=== PATIENT | male | born 1960 | race Caucasian/White ===

== ENCOUNTER → 2016-12-31 | Outpatient (REF) | payer OTHER | LOC: M LAB REF 13:09 | PROVIDERS: ATTEND Internal Medicine | DX: E78.2 Mixed hyperlipidemia (principal) ==

== ENCOUNTER → 2017-05-18 | Outpatient (REF) | payer OTHER | LOC: M LAB REF 18:28 | PROVIDERS: ATTEND Internal Medicine | DX: E78.2 Mixed hyperlipidemia (principal) ==

== ENCOUNTER → 2017-07-29 | Outpatient (CLI) | payer OTHER ==
[2017-07-29 18:10] LABS: BASO # 0.1 10^3/uL (0.0-0.2); BASO % 0.9 % (0.0-1.0); EOS # 0.2 10^3/uL (0.0-0.50); EOS % 2.3 % (0.0-3.0); IMMATURE GRANULOCYTE % 1.2 % (0-0); LYMPH # 2.2 10^3/uL (1.5-4.5); LYMPH % 23.8 % (24.0-44.0); MEAN CORPUSCULAR HEMOGLOBIN 27.7 pg (27.0-33.0); MEAN CORPUSCULAR HGB CONC 32.1 g/dl (32.0-36.5); MEAN CORPUSCULAR VOLUME 86.3 fl (80.0-96.0); MONO # 0.6 10^3/uL (0.0-0.8); MONO % 6.7 % (0.0-5.0); NEUTROPHILS # 5.9 10^3/uL (1.8-7.7); NEUTROPHILS % 65.1 % (36.0-66.0); PLATELET COUNT, AUTOMATED 238 10^3/uL (150-450); RED CELL DISTRIBUTION WIDTH 14.5 % (11.5-14.5); WHITE BLOOD COUNT 9.1 10^3/uL (4.0-10.0)
[2017-07-29 18:21] LABS: ADD MORPHOLOGY? NO
--- NOTE | 2017-07-30 00:30 | REP ---
Clinical: Renal cancer . Comparison: 07/02/2016 . Technique: PA and lateral. Findings: The mediastinum and cardiac silhouette are normal. The lung zapien demonstrate chronic stable changes without acute consolidation, effusion, or pneumothorax. The skeletal structures are intact and normal. Impression: 1. No acute cardiopulmonary process. Signed by Gonzalo Mason MD 07/30/2017 12:21 A
== END ==
LOC: M LAB 15:54
PROVIDERS: ATTEND Urology
DX: C64.2 Malignant neoplasm of left kidney, except renal pelvis (principal)

== ENCOUNTER → 2017-10-02 | Outpatient (REF) | payer OTHER | LOC: M LAB REF 12:36 | PROVIDERS: ATTEND Internal Medicine | DX: E78.2 Mixed hyperlipidemia (principal) ==

== ENCOUNTER → 2018-03-12 | Outpatient (REF) | payer OTHER ==
[2018-03-13 08:06] LABS: LDL DIRECT 75 mg/dL (0-99)
== END ==
LOC: M LAB REF 12:14
DX: E78.2 Mixed hyperlipidemia (principal)
CPT/HCPCS: 83721

== ENCOUNTER 2018-12-17 19:15 | Inpatient (IN) | payer OTHER ==
[~2018-12-17] VITALS: Ht 175.3 cm; Wt 118.5 kg
[2018-12-17] MEDS ORDERED: ASPI1TAB PO (19:53)
[2018-12-17] MEDS ORDERED: BISO10TA6 PO (19:53)
[2018-12-17] MEDS ORDERED: AMLO5TAB6 PO (19:53)
[2018-12-17] MEDS ORDERED: LOVA1CAP17 PO (19:58)
[2018-12-17] MEDS ORDERED: INDA25TAB PO (19:58)
[2018-12-17] MEDS ORDERED: IRBE150T12 PO (19:58)
[2018-12-17] MEDS ORDERED: SITA50TAB PO (19:58)
[2018-12-17] MEDS ORDERED: GLIM2TAB PO (19:58)
[2018-12-17] MEDS ORDERED: SING10TA32 PO (19:58)
[2018-12-17] MEDS ORDERED: ZETI10TA30 PO (19:58)
[2018-12-17] MEDS ORDERED: NS 500 ML IV ONE ×2 (20:00→21:15)
[2018-12-17] MEDS ORDERED: DICYCLOMINE 10 MG CAP PO ONE (20:00)
[2018-12-17] MEDS ORDERED: ONDANSETRON 4MG/2ML VIAL (J2405) IV ONE (20:00)
[2018-12-17 20:10] LABS: BASO # 0.1 10^3/uL (0.0-0.2); BASO % 0.4 % (0.0-1.0); EOS % 0.1 % (0.0-3.0); HEMATOCRIT 52.7 % (42.0-52.0); LYMPH # 1.7 10^3/uL (1.5-4.5); LYMPH % 10.3 % (24.0-44.0); MEAN CORPUSCULAR HEMOGLOBIN 28.5 pg (27.0-33.0); MEAN CORPUSCULAR HGB CONC 34.2 g/dl (32.0-36.5); MEAN CORPUSCULAR VOLUME 83.5 fl (80.0-96.0); MONO # 0.9 10^3/uL (0.0-0.8); MONO % 5.3 % (0.0-5.0); NEUTROPHILS # 13.8 10^3/uL (1.8-7.7); NEUTROPHILS % 83.1 % (36.0-66.0); PLATELET COUNT, AUTOMATED 270 10^3/uL (150-450); WHITE BLOOD COUNT 16.6 10^3/uL (4.0-10.0)
[2018-12-17 20:13] LABS: RED BLOOD COUNT 6.31 10^6/uL (4.30-6.10)
[2018-12-17 20:43] LABS: ALBUMIN 3.8 GM/DL (3.2-5.2); ALT/SGPT 35 U/L (12-78); BILIRUBIN,DIRECT 0.2 MG/DL (0.0-0.2); BLOOD UREA NITROGEN 24 MG/DL (7-18); CALCIUM LEVEL 9.4 MG/DL (8.5-10.1); CARBON DIOXIDE LEVEL 25 MEQ/L (21-32); CHLORIDE LEVEL 99 MEQ/L (98-107); CREATININE FOR GFR 1.28 MG/DL (0.70-1.30); GLOMERULAR FILTRATION RATE > 60.0 (>56); GLUCOSE, FASTING 245 MG/DL (70-100); LIPASE 222 U/L (73-393); SODIUM LEVEL 135 MEQ/L (136-145); TOTAL PROTEIN 7.3 GM/DL (6.4-8.2)
--- NOTE | 2018-12-17 22:10 | REPVR ---
EXAM: CT Abdomen and Pelvis Without Contrast EXAM DATE/TIME: 12/17/18 (9:18pm) CLINICAL HISTORY: 58 year old male with lower abdominal pain and vomiting. History of bladder cancer. TECHNIQUE: Axial computed tomography images of the abdomen and pelvis without contrast. All CT scans at this facility use at least one of these dose optimization techniques: automated exposure control; mA and/or kV adjustment per patient size (includes targeted exams where dose is matched to clinical indication); or iterative reconstruction. Coronal and sagittal reformatted images were created and reviewed. COMPARISON: No relevant prior studies available FINDINGS: Lower thorax: No acute findings. No pleural effusions. ABDOMEN: Liver: No solid mass. Diffuse fatty infiltration. Gallbladder and bile ducts: Normal. No calcified stones. No ductal dilatation. Pancreas: Normal. No ductal dilatation. Spleen: Unremarkable texture. No splenomegaly. Small amount of nonspecific perisplenic fluid Adrenals: Normal. No mass. Kidneys and ureters: Left kidney is not visualized. Solitary right kidney, without hydronephrosis. Mild nonspecific right perinephric stranding. Stomach and bowel: Many small bowel loops are fluid-filled and moderately distended. Distal ileal loops and the colon are nondistended. Sigmoid diverticulosis changes. Appendix: No evidence of appendicitis. PELVIS: Bladder: Unremarkable as visualized. Reproductive: Unremarkable as visualized. ABDOMEN and PELVIS: Intraperitoneal space: Small amount of nonspecific perisplenic fluid. No free air. Bones/joints: No acute fracture nor dislocation. Soft tissues: Unremarkable. Vasculature: Normal. No abdominal aortic aneurysm. Lymph nodes: Normal. No enlarged lymph nodes. Other findings: Small uncomplicated ventral hernia (3 cm size). IMPRESSION: Multiple fluid-filled and moderately distended small bowel loops. Distal ileal loops and the colon are not distended. The findings may represent a mechanical small bowel obstruction (perhaps a mid SBO, eg). Surgical consultation and close follow-up are suggested. Small amount of nonspecific perisplenic fluid. Solitary right kidney, with perinephric stranding --- perhaps a chronic change, eg. A right-sided pyelonephritis cannot be excluded. Urinalysis correlation is suggested. The left kidney is absent. Electronically signed by: Neeru Marsh On 12/17/2018 22:10:15 PM
[2018-12-17] MEDS ORDERED: NS 1,000 ML IV SCH (22:30)
[2018-12-18] MEDS ORDERED: MORPHINE 4 MG/ML 1ML VIAL/SYRINGE (J2270) IV PRN (02:15)
[2018-12-18] MEDS ORDERED: ONDANSETRON 4MG/2ML VIAL (J2405) IV PRN (02:15)
[2018-12-18] MEDS ORDERED: KETOROLAC 30 MG/ML VIAL (J1885) IV PRN (02:15)
[2018-12-18] MEDS ORDERED: METOCLOPRAMIDE INJ 10MG/2ML VIAL (J2765) IV PRN (02:15)
[2018-12-18] MEDS: LR 1,000 ML IV SCH ×3 (04:04→18:09)
[2018-12-18] MEDS: HEPARIN SOD (PORCINE) 5000 UNITS/ML VIAL SC SCH ×3 (06:16→21:40)
[2018-12-18] MEDS: HumaLOG INSULIN (NovoLOG) PER UNIT SC SCH ×3 (06:17→18:09)
[2018-12-18 08:31] LABS: BASO # 0.1 10^3/uL (0.0-0.2); BASO % 0.7 % (0.0-1.0); EOS # 0.2 10^3/uL (0.0-0.50); EOS % 1.4 % (0.0-3.0); HEMATOCRIT 48.6 % (42.0-52.0); LYMPH # 2.2 10^3/uL (1.5-4.5); LYMPH % 21.1 % (24.0-44.0); MEAN CORPUSCULAR HEMOGLOBIN 28.4 pg (27.0-33.0); MEAN CORPUSCULAR HGB CONC 32.9 g/dl (32.0-36.5); MEAN CORPUSCULAR VOLUME 86.2 fl (80.0-96.0); MONO # 0.6 10^3/uL (0.0-0.8); NEUTROPHILS # 7.3 10^3/uL (1.8-7.7); NEUTROPHILS % 69.7 % (36.0-66.0); PLATELET COUNT, AUTOMATED 212 10^3/uL (150-450); RED BLOOD COUNT 5.64 10^6/uL (4.30-6.10); WHITE BLOOD COUNT 10.5 10^3/uL (4.0-10.0)
[2018-12-18 09:03] LABS: BLOOD UREA NITROGEN 23 MG/DL (7-18); CALCIUM LEVEL 8.1 MG/DL (8.5-10.1); CARBON DIOXIDE LEVEL 30 MEQ/L (21-32); CHLORIDE LEVEL 101 MEQ/L (98-107); GLOMERULAR FILTRATION RATE > 60.0 (>56); GLUCOSE, FASTING 243 MG/DL (70-100); POTASSIUM SERUM 3.7 MEQ/L (3.5-5.1); SODIUM LEVEL 139 MEQ/L (136-145)
--- NOTE | 2018-12-18 09:38 | REP ---
SUPINE ABDOMEN: 12/18/2018. CLINICAL HISTORY: Small bowel obstruction. Prior history left nephrectomy. COMPARISON: CT abdomen/pelvis 12/17/2018. FINDINGS: Two views of the supine abdomen to encompass the entirety of the abdomen and pelvis were provided. There is now a nasogastric tube curving into the gastric fundus, its proximal port few centimeters beyond the GE junction. There are some dilated small bowel loops in the left upper quadrant into the mid abdomen and towards the right of midline. The degree of distension is similar to last night's CT. This reflects at least partial small-bowel obstruction. Paucity of gas elsewhere in the abdomen/pelvis. No calcifications of the right renal shadow or expected course of the ureter. Degenerative disc changes and facet arthritic changes in the lumbar spine and hip arthritis as well. IMPRESSION: 1. Nasogastric tube now in place with its tip in the gastric fundus and with the gas pattern showing some mildly distended gas-filled small bowel loops left upper quadrant into the mid abdomen extending towards the right of midline, not much interval change. Findings suggesting a partial small-bowel obstruction. Paucity of gas distal to these loops. However, there is a small volume of gas in the rectal vault. Electronically Signed by Prem Hargrove MD 12/18/2018 07:35 P
[2018-12-18] MEDS: PANTOPRAZOLE 40MG INJ (PROTONIX) (C9113) IV SCH (09:43)
[2018-12-18] MEDS: BISOPROLOL FUMARATE 10 MG TAB PO SCH (09:43)
--- NOTE | 2018-12-18 09:47 | HPE ---
DATE OF ADMISSION: 12/18/2018 ADMISSION DIAGNOSIS: Small bowel obstruction. HISTORY OF PRESENT ILLNESS The patient is a pleasant 58-year-old man who noted on night around supper time a little mild discomfort in his lower abdomen. He had his supper as usual, but afterwards noted the onset of some nausea and persistence of the pain, but with some worsening. He developed emesis and had at least three episodes of emesis. He then had dry heaves that lasted much of the night. He presented to the emergency department just after 7:00 p.m. on December 17 for evaluation. He had had less vomiting during the day but was not trying to take anything orally. He had laboratory studies that suggested some hemoconcentration with an elevated white blood cell count. A CT scan showed some mildly dilated loops of small bowel suggestive of a bowel obstruction. A nasogastric tube was placed and I am now consulted to evaluate the patient. ALLERGIES: The patient reports that STATINS cause body aches. MEDICATIONS: Include: - amlodipine 5 mg p.o. twice daily - aspirin 81 mg p.o. daily - bisoprolol fumarate 10 mg p.o. daily - glimepiride 2 mg p.o. twice a day - indapamide 2.5 mg p.o. daily - omega 3 fatty acids 1 gram orally twice a day - montelukast 10 mg p.o. daily at bedtime - irbesartan 150 mg p.o. daily - ezetimibe 10 mg p.o. daily at bedtime - sitagliptin/Januvia 50 mg p.o. daily PAST SURGICAL HISTORY: The patient has undergone a left nephrectomy in 2006 for cancer. This was done in [place]. He had three surgical procedures for bladder cancer in approximately 2007, 2008 and 2009. PAST MEDICAL HISTORY: His medical history is significant for type 2 diabetes. He has hypertension. He has a history of obstructive sleep apnea. He is status post nephrectomy 12 years ago. FAMILY HISTORY: Noncontributory. SOCIAL HISTORY: The patient is a nonsmoker. REVIEW OF SYSTEMS: The patient denies any chest pain or palpitations. He has not had a stroke or mini stroke. He denies any dysuria or hematuria. He has not had any history of deep vein thrombosis (DVT) or pulmonary embolus. He is not having any particular bone or joint issues. 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 He denies any tobacco use and alcohol use is low. PHYSICAL EXAMINATION: The patient is lying quietly on the hospital stretcher. He is alert and oriented. Sclerae are anicteric. Mucous membranes are tacky to moist. The neck is supple without mass or bruit. Heart exam shows a regular rate and rhythm. The lungs are clear to auscultation bilaterally. Abdomen is somewhat protuberant. He has a fairly quiet abdomen on auscultation. He has a small hernia centrally in the umbilicus and a roughly 7-8 cm scar just above the umbilicus. The abdomen is soft throughout without appreciable mass or guarding. He has some mild direct tenderness below in the midline. The patient has palpable radial pulses and palpable dorsalis pedis pulses as well. LABORATORY STUDIES: On presentation, showed a white count of 17,000, hemoglobin 18, hematocrit 53 and a platelet count of 270,000. Differential count showed a neutrophil count of 83%, lymphs were 10, and monocytes were 5. Chemistry profile showed a sodium of 135, potassium 4.0, chloride 99, CO2 of 25, BUN of 24, creatinine 1.28 and a glucose of 245. Liver function tests were normal. The CT scan was reviewed and this showed absence of the left kidney. His hernia was noted, but did not appear to contain any bowel. There were some mildly to moderately dilated loops of small bowel chiefly in the left midabdomen. IMPRESSION: 1. Small intestinal obstruction secondary to adhesions. 2. Diabetes mellitus type 2. 3. Obstructive sleep apnea. 4. Hypertension. PLAN: The patient will be managed as a small-bowel obstruction. He has an NG tube that was placed in the emergency department and this will be continued to low intermittent suction. He will receive maintenance fluid. He will be placed on Protonix to decrease his gastric secretions. His bisoprolol will be continued and his other medications held for now. Fingerstick blood sugars will be checked and covered as necessary with insulin. The patient will be reexamined in the morning to see how his symptoms are progressing. Hopefully he will resolve this issue spontaneously and not require any surgical intervention.
[2018-12-18 13:20] VITALS: BP 150/88
[2018-12-18 18:00] VITALS: BP 140/82
[2018-12-18] MEDS: MORPHINE 4 MG/ML 1ML VIAL/SYRINGE (J2270) IV PRN (19:58)
[2018-12-18 22:00] VITALS: BP 162/72
[2018-12-19] MEDS: HumaLOG INSULIN (NovoLOG) PER UNIT SC SCH ×5 (00:43→23:44)
[2018-12-19] MEDS: MORPHINE 4 MG/ML 1ML VIAL/SYRINGE (J2270) IV PRN ×2 (00:44→11:02)
[2018-12-19 02:00] VITALS: BP 124/78
[2018-12-19] MEDS: LR 1,000 ML IV SCH ×2 (04:36→17:42)
[2018-12-19] MEDS: HEPARIN SOD (PORCINE) 5000 UNITS/ML VIAL SC SCH ×3 (05:20→22:23)
[2018-12-19 06:00] VITALS: BP 140/81
--- NOTE | 2018-12-19 08:19 | IPN ---
DATE OF SERVICE: 12/18/2018 HISTORY: The patient was admitted early this morning with a history of abdominal pain with some nausea and vomiting and x-ray findings consistent with an intestinal obstruction. He spent the night in a holding bed in the emergency department and was moved up to 4 pavilion today. He apparently had a significant volume out from his nasogastric (NG) tube over the course of the night, approximately 6640-3510 mL. He does report having had a small amount of flatus. He reports that his abdominal pain has diminished. VITAL SIGNS: Show that the patient has been afebrile. His pulse is in the 60s-70s, and his blood pressure is good. Room air oxygen saturations are normal. INTAKE AND OUTPUT: He had a liter of fluid, though this clearly does not include the fluid he received in the emergency department. He has had 500 mL of urine output and 1400 mL from his NG tube today. PHYSICAL EXAMINATION: The patient is sitting up in his bed with his NG tube in place. He appears alert and fairly comfortable. The NG tube has a minimal amount of brownish-green fluid in the canister. Heart examination shows a regular rate and rhythm. Abdomen is somewhat obese. He does have bowel sounds present, though these are not active. Palpation reveals some mild tenderness on palpation in the right upper quadrant and in the epigastrium. LABORATORY STUDIES: This morning show that his white count had come down from 17 to 10. His hemoglobin was 16 with a hematocrit of 49 and a platelet count of 212,000. Differential count was 70% neutrophils, 21% lymphocytes, and 6% monocytes. Chemistry profile showed normal electrolytes with BUN of 23, creatinine 1.1, and a glucose of 243. IMAGING: The patient had a kidneys, ureters, bladder (KUB) this morning. This showed a couple of fairly faintly outlined areas of what looked like small bowel distention in the left upper quadrant. There was a general paucity of air in the abdomen with a small amount of air noted in the rectum. IMPRESSION: The patient had a good return from his NG tube last night, and his pain is diminished. X-ray is still suggestive of a bowel obstruction. PLAN: The patient's NG tube will be continued, and he will remain on intravenous (IV) maintenance fluid. We will continue a nonoperative approach for at least the next 24 hours. I will recheck a KUB in the morning and reassess him at that time. Hopefully, this will resolve without the need for surgical intervention.
[2018-12-19] MEDS: BISOPROLOL FUMARATE 10 MG TAB PO SCH (09:37)
[2018-12-19] MEDS: PANTOPRAZOLE 40MG INJ (PROTONIX) (C9113) IV SCH (09:37)
[2018-12-19 10:00] VITALS: BP 132/78
--- NOTE | 2018-12-19 11:16 | REP ---
SUPINE ABDOMEN: 12/19/2018. COMPARISON: 12/18/2018, CT 12/17/2018. CLINICAL HISTORY: Followup ileus versus partial small-bowel obstruction. FINDINGS: Nasogastric tube again seen with its tip in the fundus. There are still some mildly prominent small bowel loops in the left upper quadrant but their caliber is somewhat decreased. There is now gas scattered throughout small bowel loops distal to these and into the right lower quadrant. Gas is also seen scattered throughout the right transverse colon to the splenic flexure. Small amounts of gas in the distal left colon. No abnormal calcifications. Pelvic phlebolith seen on the left. Some degenerative changes in the spine. No definite abnormal calcifications. IMPRESSION: 1. Improving ileus or partial small-bowel obstruction with gas now extending to distal small bowel loops and into the colon as far as the level of the splenic flexure. Electronically Signed by Prem Hargrove MD 12/19/2018 11:27 A
[2018-12-19 14:00] VITALS: BP 145/85
[2018-12-19 18:00] VITALS: BP 140/70
[2018-12-19 22:00] VITALS: BP 146/80
[2018-12-20 02:00] VITALS: BP 138/76
[2018-12-20 06:00] VITALS: BP 130/80
[2018-12-20 06:29] LABS: BASO # 0.1 10^3/uL (0.0-0.2); BASO % 0.5 % (0.0-1.0); EOS # 0.1 10^3/uL (0.0-0.50); EOS % 0.7 % (0.0-3.0); HEMOGLOBIN 14.4 g/dl (13.5-17.5); LYMPH # 1.1 10^3/uL (1.5-4.5); LYMPH % 9.8 % (24.0-44.0); MEAN CORPUSCULAR HEMOGLOBIN 28.1 pg (27.0-33.0); MEAN CORPUSCULAR VOLUME 87.9 fl (80.0-96.0); MONO # 0.7 10^3/uL (0.0-0.8); MONO % 6.4 % (0.0-5.0); NEUTROPHILS % 81.8 % (36.0-66.0); PLATELET COUNT, AUTOMATED 168 10^3/uL (150-450); RED BLOOD COUNT 5.12 10^6/uL (4.30-6.10)
[2018-12-20] MEDS: HEPARIN SOD (PORCINE) 5000 UNITS/ML VIAL SC SCH ×3 (06:40→21:13)
[2018-12-20] MEDS: HumaLOG INSULIN (NovoLOG) PER UNIT SC SCH ×4 (06:40→23:39)
[2018-12-20] MEDS: LR 1,000 ML IV SCH ×2 (06:41→21:14)
[2018-12-20 06:59] LABS: BLOOD UREA NITROGEN 15 MG/DL (7-18); CALCIUM LEVEL 8.4 MG/DL (8.5-10.1); CARBON DIOXIDE LEVEL 31 MEQ/L (21-32); CHLORIDE LEVEL 103 MEQ/L (98-107); CREATININE FOR GFR 1.12 MG/DL (0.70-1.30); GLOMERULAR FILTRATION RATE > 60.0 (>56); GLUCOSE, FASTING 217 MG/DL (70-100); POTASSIUM SERUM 3.6 MEQ/L (3.5-5.1); SODIUM LEVEL 139 MEQ/L (136-145)
[2018-12-20 07:00] LABS: ALT/SGPT 30 U/L (12-78); BILIRUBIN,TOTAL 1.3 MG/DL (0.2-1.0); TOTAL PROTEIN 6.7 GM/DL (6.4-8.2)
[2018-12-20] MEDS: PANTOPRAZOLE 40MG INJ (PROTONIX) (C9113) IV SCH (08:41)
[2018-12-20] MEDS: BISOPROLOL FUMARATE 10 MG TAB PO SCH (08:41)
[2018-12-20 10:00] VITALS: BP 122/79
[2018-12-20 14:00] VITALS: BP 122/70
[2018-12-20 18:00] VITALS: BP 124/72
--- NOTE | 2018-12-20 18:23 | REP ---
SUPINE ABDOMEN: 12/20/2018. Comparison: 12/19/2018, 12/18/2018, CT 12/17/2018. Clinical history: Follow-up small bowel obstruction. Two views encompass the entirety the abdomen pelvis were again given. There is a nasogastric tube in the fundus of the stomach as before. There is further gas in the colon and scattered throughout small bowel loops. There remains some mildly prominent proximal small bowel loops in the left upper quadrant and tapering to a smaller diameters in the mid abdomen and normal overall. No other significant finding. Impression: 1. Still some mild distension of proximal small bowel loops left upper quadrant and mid upper abdomen that, however, there is more gas into the colon and scattered gas throughout small bowel loops. Findings suggest slowly resolving small bowel obstruction or ileus. Electronically Signed by Prem Hargrove MD 12/21/2018 07:59 A
[2018-12-20 22:00] VITALS: BP 152/76
--- NOTE | 2018-12-21 03:51 | IPN ---
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 He was treated with a nasogastric (NG) tube and intravenous (IV) fluid. He reports this morning that he has passed some flatus today. He has had some discomfort twice that required medication but overall the pain has been much less than it had been. He was up ambulating in the [place] when I came to see him. VITAL SIGNS: Show that he has been afebrile over the last 24 hours. His pulse is in the 60s and 70s and his blood pressure is good. Room air oxygen saturations are in the low to mid 90s. Intake and output show that yesterday recorded in the record he had 1000 in with 2300 out. Today so far he has had 720 of NG output and 400 of urine output recorded. His intravenous (IV) is going at 75 mL/hour. PHYSICAL EXAMINATION: GENERAL: Physical exam shows a pleasant man in no obvious acute distress. The nasogastric tube is in place with a small amount of brownish fluid in the tubing. HEART: Heart exam shows a regular rate and rhythm. ABDOMEN: The abdomen is mildly protuberant. He has active bowel sounds. There is no tympany to percussion. The abdomen is soft throughout with some very mild direct tenderness in the left lower midabdomen. LABORATORIES: The patient has no new laboratory studies today. A kidney, ureter, and bladder (KUB) today showed increased air in the small and large bowel with decreased distension of the small bowel noted in the left upper quadrant. IMPRESSION: The patient appears to be having some improvement in his bowel obstruction. He has had some flatus. Has had generally pretty mild pain and his x-ray looks better. PLAN: We will try clamping his nasogastric (NG) tube. There will be orders to reconnect this to low intermittent suction if he develops nausea, vomiting or increasing pain. We will were obtain another KUB in the morning. If he is doing well with the tube clamped we can remove this and begin some clear liquids. If he has a recurrence of his symptoms with the tube clamped then we should probably proceed to surgery. This was discussed with the patient and his spouse.
[2018-12-21 06:00] VITALS: BP 130/75
[2018-12-21] MEDS: HumaLOG INSULIN (NovoLOG) PER UNIT SC SCH ×3 (06:02→18:18)
[2018-12-21] MEDS: HEPARIN SOD (PORCINE) 5000 UNITS/ML VIAL SC SCH ×3 (06:02→21:03)
[2018-12-21] MEDS: PANTOPRAZOLE 40MG INJ (PROTONIX) (C9113) IV SCH (09:54)
[2018-12-21] MEDS: BISOPROLOL FUMARATE 10 MG TAB PO SCH (09:57)
[2018-12-21 10:00] VITALS: BP 148/82
--- NOTE | 2018-12-21 15:54 | IPN ---
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 He had abdominal pain with some distension and nausea and vomiting and a CT scan that suggested an intestinal obstruction. A nasogastric tube was placed, and he has been decompressed.. He had one brief episode of nausea, for which the tube was unclamped, but it has otherwise remained clamped since then. He reports no pain. He indicates he has been having some flatus. He has not yet had a bowel movement. VITAL SIGNS: He has been afebrile over the past 24 hours with a pulse in the 60s and 70s and a normal blood pressure. Room air oxygen saturations are normal. Intake and output show that yesterday they have recorded 1200 in with 1120 out, though his intravenous (IV) intake should be higher given his current IV rate. His urine output today has been good as well. PHYSICAL EXAMINATION: The patient is lying quietly on the hospital bed. His nasogastric (NG) tube is clamped with a small amount of old dark material in the tubing. Heart exam shows a regular rhythm. The abdomen is mildly obese. He has bowel sounds present. Palpation reveals no significant tenderness. There is no tympany to percussion and no tenderness to percussion. Laboratory studies include a CBC showing a white count of 11 with a differential showing 82% neutrophils, 10% lymphocytes, and 6% monocytes. Chemistry profile shows normal electrolytes with BUN 12, creatinine 1.1, and a glucose of 217. KUB done this morning shows air scattered through the small and large bowel. He does have a few faint loops of small bowel seen in the left mid upper abdomen as outlined by some intraluminal air. There is one of these that it is mildly dilated and the others not so much. Overall, I do not think that this is significantly changed from yesterday. IMPRESSION: Resolved obstructive symptoms with NG clamped for the past day. PLAN: The patient's NG tube will be removed, and he will be started on clear liquids. We will monitor for any recurrence of symptoms.
[2018-12-21] MEDS ORDERED: HumaLOG INSULIN (NovoLOG) PER UNIT SC SCH (21:00)
[2018-12-21 22:00] VITALS: BP 132/70
[2018-12-22] MEDS: HEPARIN SOD (PORCINE) 5000 UNITS/ML VIAL SC SCH (05:24)
[2018-12-22 06:00] VITALS: BP 132/78
[2018-12-22] MEDS: BISOPROLOL FUMARATE 10 MG TAB PO SCH (08:48)
[2018-12-22] MEDS: HumaLOG INSULIN (NovoLOG) PER UNIT SC SCH (08:49)
[2018-12-22] MEDS ORDERED: IRBESARTAN 150 MG TAB PO SCH (09:00)
[2018-12-22] MEDS ORDERED: ASPIRIN 81 MG ENTERIC TAB PO SCH (09:00)
[2018-12-22] MEDS ORDERED: SITagliptin 50 MG TAB (JANUVIA) PO SCH (09:00)
[2018-12-22] MEDS ORDERED: amLODIPine 5 MG TAB PO SCH (09:00)
[2018-12-22 10:00] VITALS: BP 129/67
[2018-12-22 10:21] VITALS: BP 158/87
--- NOTE | 2018-12-22 16:55 | IPN ---
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 A nasogastric tube was placed, which was removed on December 20. He was started on some clear liquids. He reports that he (cut off) and has had some flatus and some loose stool. He denies any significant abdominal pain currently. He has no nausea or vomiting. Vital signs show that he has been afebrile over the past 24 hours. His pulse is generally in the upper 50s to mid 70s. Blood pressure is good, and his room air saturation (cut off). Intake and output show that yesterday he had 2350 in with 1325 recorded out. He has had several voids and several bowel movements recorded today. PHYSICAL EXAMINATION: The patient is sitting up in a chair looking comfortable. He is alert and oriented. Abdomen is obese and protuberant, but he has active bowel sounds, and the abdomen is soft and without significant tenderness. IMPRESSION: The patient has been doing well with clear liquids with return of bowel function and no significant abdominal pain. He does seem to have some mild abdominal distension, though he reports that his abdomen appears normal in contour to him. PLAN: The patient will be advanced to a regular diet. If he tolerates this well, I would anticipate discharge in the morning.
--- NOTE | 2018-12-22 16:57 | IPN ---
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 His nasogastric (NG) tube was removed on December 20, and he has tolerated clear liquids well. He started regular diet on the evening of December 21. This morning he reports that he has been eating well. He is passing flatus and voiding without difficulty. He denies any pain. Vital signs show that he has been afebrile with a pulse in the 50s and a normal blood pressure. Intake and output show an excellent oral intake yesterday. PHYSICAL EXAMINATION: The patient is sitting in a chair looking comfortable. He is alert and oriented. Heart exam shows a regular rhythm. The lungs are clear. The abdomen is obese but soft and nontender with positive bowel sounds. LABORATORY STUDIES: His fingerstick blood sugars have been running in the low to mid 200s since yesterday. IMPRESSION: The patient is doing very well with resolution of his bowel obstruction. He has tolerated a regular diet. PLAN: The patient will be started back on his usual diabetes and blood pressure medications, which have been held. I will discharge him home today. He was counseled to return on an as-needed basis. He can return to work on December 27.
[2018-12-22] MEDS ORDERED: GLIMEPIRIDE 2 MG TAB PO SCH (17:30)
== END 2018-12-22 10:25 | disposition home or self-care (01) | DRG 247 ==
LOC: M ED 19:15 → M ED INP 12-18 02:03 → M MSPAV 12-18 13:18
PROVIDERS: ADMIT Surgery; ATTEND Surgery
DX: K56.50 Intestinal adhesions [bands], unspecified as to partial versus complete obstruction (principal); I10 Essential (primary) hypertension; E11.9 Type 2 diabetes mellitus without complications; G47.33 Obstructive sleep apnea (adult) (pediatric); Z85.528 Personal history of other malignant neoplasm of kidney; Z90.5 Acquired absence of kidney; Z85.51 Personal history of malignant neoplasm of bladder; Z88.8 Allergy status to other drugs, medicaments and biological substances; Z79.82 Long term (current) use of aspirin; Z79.899 Other long term (current) drug therapy

== ENCOUNTER → 2019-01-04 | Outpatient (REF) | payer OTHER ==
[~2019-01-04] MED LIST: AMLO5TAB6 PO; ASPI1TAB PO; BISO10TA6 PO; GLIM2TAB PO; INDA25TAB PO; IRBE150T12 PO; LOVA1CAP17 PO; SING10TA32 PO; SITA50TAB PO; ZETI10TA30 PO
[2019-01-05 10:27] LABS: LDL DIRECT 45 mg/dL (0-99)
== END ==
LOC: M LAB REF 12:35
PROVIDERS: ATTEND Internal Medicine
DX: E78.2 Mixed hyperlipidemia (principal)

== ENCOUNTER 2019-03-27 21:33 | Inpatient (IN) | payer OTHER ==
[~2019-03-27] VITALS: Ht 175.3 cm; Wt 118.2 kg
[2019-03-27] MEDS: amLODIPine 5 MG TAB PO SCH (21:00)
[~2019-03-27 21:33] MED LIST changes: -ASPI1TAB PO; +ASPI81TA26 PO
[2019-03-27 22:41] LABS: BASO # 0.1 10^3/uL (0.0-0.2); EOS # 0.4 10^3/uL (0.0-0.50); EOS % 3.6 % (0.0-3.0); HEMOGLOBIN 16.3 g/dl (13.5-17.5); LYMPH % 19.4 % (24.0-44.0); MEAN CORPUSCULAR HEMOGLOBIN 28.7 pg (27.0-33.0); MEAN CORPUSCULAR HGB CONC 32.6 g/dl (32.0-36.5); MONO # 0.6 10^3/uL (0.0-0.8); MONO % 5.4 % (0.0-5.0); NEUTROPHILS # 7.3 10^3/uL (1.8-7.7); NEUTROPHILS % 69.4 % (36.0-66.0); PLATELET COUNT, AUTOMATED 213 10^3/uL (150-450); RED BLOOD COUNT 5.68 10^6/uL (4.30-6.10); WHITE BLOOD COUNT 10.5 10^3/uL (4.0-10.0)
[2019-03-27] MEDS ORDERED: ONDANSETRON 4MG/2ML VIAL (J2405) IV ONE (23:00)
[2019-03-27] MEDS ORDERED: NS 500 ML IV ONE (23:00)
[2019-03-27] MEDS ORDERED: MORPHINE 4 MG/ML 1ML VIAL/SYRINGE (J2270) IV ONE (23:00)
[2019-03-27 23:22] LABS: ALBUMIN 3.8 GM/DL (3.2-5.2); ALT/SGPT 36 U/L (12-78); BILIRUBIN,DIRECT < 0.1 MG/DL (0.0-0.2); BILIRUBIN,TOTAL 0.4 MG/DL (0.2-1.0); BLOOD UREA NITROGEN 26 MG/DL (7-18); CARBON DIOXIDE LEVEL 32 MEQ/L (21-32); CHLORIDE LEVEL 99 MEQ/L (98-107); CREATININE FOR GFR 1.17 MG/DL (0.70-1.30); GLOMERULAR FILTRATION RATE > 60.0 (>56); GLUCOSE, FASTING 231 MG/DL (70-100); LIPASE 176 U/L (73-393); POTASSIUM SERUM 3.9 MEQ/L (3.5-5.1); SODIUM LEVEL 137 MEQ/L (136-145); TOTAL PROTEIN 7.7 GM/DL (6.4-8.2)
[2019-03-27] MEDS ORDERED: ISOVUE-370 76% 100ML VIAL (Q9967) As Ordered ONE (23:25)
--- NOTE | 2019-03-28 00:12 | REPVR ---
EXAM: CT Abdomen and Pelvis With Contrast EXAM DATE/TIME: 03/27/2019 11:31 PM CLINICAL HISTORY: 58 years old, male; Abdominal pain; Localized; Lower; Prior surgery; Surgery date: 6+ months; Additional info: Lower abdominal pain; HX of obstruction TECHNIQUE: Imaging protocol: Axial computed tomography images of the abdomen and pelvis with intravenous contrast. Coronal and sagittal reformatted images were created and reviewed. Radiation optimization: All CT scans at this facility use at least one of these dose optimization techniques: automated exposure control; mA and/or kV adjustment per patient size (includes targeted exams where dose is matched to clinical indication); or iterative reconstruction. Contrast material: ISOVUE 370; Contrast volume: 100 ml; Contrast route: IV; COMPARISON: CT ABD PELVIS W/O CONTRAST 12/17/2018 9:11 PM FINDINGS: Lungs: Slight bibasilar interstitial prominence with calcified granuloma in the posterior left lower lobe. ABDOMEN: Liver: There is fatty infiltration of the liver. Gallbladder and bile ducts: The gallbladder is somewhat contracted with no stones. Pancreas: Normal. No ductal dilation. Spleen: The spleen measures 14.2 cm. Adrenals: Normal. No mass. Kidneys and ureters: Absent left kidney. Stomach and bowel: There is colonic diverticulosis without evidence of diverticulitis. Borderline to mild distention of proximal small bowel with minimal air fluid levels. There is a point of transition upon entry into an umbilical hernia which contains a short segment of small bowel. The efferent segment is collapsed. Appendix: A normal appendix is seen. PELVIS: Bladder: Unremarkable as visualized. Reproductive: Unremarkable as visualized. ABDOMEN and PELVIS: Intraperitoneal space: Normal. No free air. No significant fluid collection. Bones/joints: Mild degenerative changes of the lumbar spine. Soft tissues: Unremarkable. Vasculature: There is minimal atherosclerotic calcification of the abdominal aorta. Lymph nodes: Normal. No enlarged lymph nodes. IMPRESSION: 1. Mild small bowel obstruction due to an incarcerated umbilical hernia which is new since 12/17/2018. A small bowel obstruction is again noted. 2. Fatty infiltration of the liver. 3. Status post left nephrectomy. 4. Borderline splenomegaly. 5. Colonic diverticulosis without diverticulitis. Electronically signed by: Jose Quigley On 03/28/2019 00:12:19 AM
[2019-03-28] MEDS ORDERED: MORPHINE 4 MG/ML 1ML VIAL/SYRINGE (J2270) IV ONE (00:30)
[2019-03-28] MEDS ORDERED: ASPI-255 PO (01:32)
[2019-03-28] MEDS ORDERED: NS 1,000 ML IV SCH (01:36)
[2019-03-28] MEDS ORDERED: MONTELUKAST 10 MG TAB PO PRN (01:45)
[2019-03-28] MEDS ORDERED: METOCLOPRAMIDE INJ 10MG/2ML VIAL (J2765) IV PRN (01:45)
[2019-03-28] MEDS ORDERED: PROMETHAZINE INJ 25 MG/ML VIAL (J2550) IV PRN (01:45)
[2019-03-28] MEDS ORDERED: GLUCAGON FOR INJ 1 MG VIAL (J1610) SC PRN (01:45)
[2019-03-28] MEDS ORDERED: DEXTROSE 50% 50 ML SYRINGE IV PRN (01:45)
[2019-03-28] MEDS ORDERED: MORPHINE 4 MG/ML 1ML VIAL/SYRINGE (J2270) IV PRN ×2 (01:45)
[2019-03-28] MEDS ORDERED: GLUCOSE 4 GM CHEW TABLET PO PRN (01:45)
[2019-03-28] MEDS ORDERED: ONDANSETRON 4MG/2ML VIAL (J2405) IV PRN (01:45)
[2019-03-28 03:00] VITALS: BP 138/83
[2019-03-28] MEDS: HumaLOG INSULIN (NovoLOG) PER UNIT SC SCH ×3 (03:16→12:34)
[2019-03-28 06:00] VITALS: BP 140/81
[2019-03-28 07:31] LABS: HEMATOCRIT 45.7 % (42.0-52.0); HEMOGLOBIN 14.7 g/dl (13.5-17.5); MEAN CORPUSCULAR HEMOGLOBIN 27.6 pg (27.0-33.0); MEAN CORPUSCULAR HGB CONC 32.2 g/dl (32.0-36.5); MEAN CORPUSCULAR VOLUME 85.7 fl (80.0-96.0); PLATELET COUNT, AUTOMATED 195 10^3/uL (150-450); RED BLOOD COUNT 5.33 10^6/uL (4.30-6.10); WHITE BLOOD COUNT 9.2 10^3/uL (4.0-10.0)
[2019-03-28 07:55] LABS: BLOOD UREA NITROGEN 22 MG/DL (7-18); CALCIUM LEVEL 8.9 MG/DL (8.5-10.1); CARBON DIOXIDE LEVEL 29 MEQ/L (21-32); CHLORIDE LEVEL 103 MEQ/L (98-107); CREATININE FOR GFR 0.99 MG/DL (0.70-1.30); GLOMERULAR FILTRATION RATE > 60.0 (>56); GLUCOSE, FASTING 157 MG/DL (70-100); POTASSIUM SERUM 3.3 MEQ/L (3.5-5.1); SODIUM LEVEL 139 MEQ/L (136-145)
[2019-03-28] MEDS ORDERED: INDAPAMIDE 1.25MG TABLET PO SCH (09:00)
[2019-03-28] MEDS ORDERED: BISOPROLOL FUMARATE 10 MG TAB PO SCH (09:00)
[2019-03-28] MEDS ORDERED: PANTOPRAZOLE 40MG INJ (PROTONIX) (C9113) IV SCH (09:00)
[2019-03-28] MEDS ORDERED: IRBESARTAN 150 MG TAB PO SCH (09:00)
[2019-03-28 09:28] VITALS: BP 136/78
[2019-03-28] MEDS: amLODIPine 5 MG TAB PO SCH (09:28)
--- NOTE | 2019-03-28 09:43 | REP ---
Clinical: Small bowel obstruction. Technique: Two supine views of the abdomen and pelvis. Findings: Nasogastric tube identified in the left upper quadrant in satisfactory position. The bowel gas pattern is nonspecific and without evidence for obstruction. No organomegaly. No abnormal calcifications. Skeletal structures exhibit age-related degenerative changes. Phleboliths noted in the pelvis. Impression: No evidence for bowel obstruction. Electronically Signed by Gonzalo Mason MD 03/28/2019 09:34 A
[2019-03-28 10:00] VITALS: BP 140/71
--- NOTE | 2019-04-01 12:15 | HPE ---
DATE OF ADMISSION: 03/28/2019 BRIEF HISTORY OF PRESENT ILLNESS: The patient is a 58-year-old male who has had a small bowel obstruction of undetermined etiology earlier this year and essentially developed lower diffuse abdominal pain over the last hour prior to admission. Nausea and vomiting occurred with severe pain. He presents to the emergency room with abdominal pain, distention, nausea and vomiting and evidence of a small bowel obstruction with incarcerated umbilical hernia on the CAT scan. The patient had a NG tube placed by the ER practitioner and after about an hour the practitioner was able to reduce the umbilical hernia and the patient's abdominal pain substantially improved. PAST MEDICAL HISTORY: Significant for history of left nephrectomy, for bladder cancer, history of left leg steel plates, history of hydrocele removal with hernia repair, history of hypercholesterolemia, hypertension, history of smoking (former smoker), history of pneumonia, history of sleep apnea, history of diabetes mellitus. MEDICATIONS: - amlodipine - aspirin - bisoprolol - glimepiride - indapamide - irbesartan - Singulair - Lovaza - Januvia PHYSICAL EXAMINATION: The patient is a 58-year-old male who looks stated age. HEENT: Unremarkable. He does have a NG tube placed and it is draining some bilious fluid. Abdomen: Not significantly distended since the NG tube has been in place and he does not complain of any pain, tenderness or problems. No guarding. No rebound. IMPRESSION AND PLAN: The patient had a small bowel obstruction and overall since the NG tube has been in and since he has been feeling better will take out the NG tube and will progress his diet. If he tolerates a clear liquid diet, will advance his diet in the afternoon and possibly discharge him to home later on today with plans on operative intervention for him with umbilical hernia repair in the future. The patient understands our current plan and would like to proceed with this.
--- NOTE | 2019-04-02 09:35 | DSES ---
DATE OF ADMISSION: 03/28/2019 DATE OF DISCHARGE: 03/28/2019 PRINCIPAL DIAGNOSIS: Small bowel obstruction secondary to umbilical hernia. BRIEF HISTORY OF PRESENT ILLNESS: The patient is a 58-year-old morbidly obese male who presents with a previous episode of small bowel obstruction earlier this year but after this resolved, he was doing well. Has not had any problems until his abdominal pain recurred right before coming in to the emergency room; essentially an hour or two before this, he developed crampy abdominal pain, quite severe in nature with nausea, vomiting. Had a nasogastric (NG) tube placed after being diagnosed with a small bowel obstruction and an incarcerated umbilical hernia, and the hernia was reduced in the emergency room. He had some significant improvement over the next several hours and since his NG tube output decreased, his abdominal pain resolved and he was having flatus. He was started on a clear liquid diet, advanced to a regular diet and was discharged to home. MEDICATIONS AT THE TIME OF DISCHARGE: Include the same as on admission: amlodipine, aspirin, bisoprolol, glimepiride, indapamide, irbesartan, Singulair, Lovaza, and Januvia. He is to follow up in my office with myself or Dr. Denton in the next week or two and to discuss umbilical hernia repair as an elective procedure. I have encouraged him to use portion control to decrease his weight and instructed him that we will need to have him evaluated/optimized from his primary care provider prior to operative intervention.
== END 2019-03-28 14:50 | disposition home or self-care (01) | DRG 254 ==
LOC: M ED 21:33 → M ED INP 03-28 01:36 → M MS5PR 03-28 02:56
PROVIDERS: ADMIT Surgery; ATTEND Surgery
DX: K42.0 Umbilical hernia with obstruction, without gangrene (principal); E78.00 Pure hypercholesterolemia, unspecified; I10 Essential (primary) hypertension; G47.30 Sleep apnea, unspecified; E11.9 Type 2 diabetes mellitus without complications; Z85.51 Personal history of malignant neoplasm of bladder; Z90.5 Acquired absence of kidney; Z87.891 Personal history of nicotine dependence; Z79.82 Long term (current) use of aspirin; Z79.84 Long term (current) use of oral hypoglycemic drugs; Z79.899 Other long term (current) drug therapy

== ENCOUNTER 2019-05-31 11:50 | Day surgery (SDC) | payer OTHER ==
[~2019-05-31] VITALS: Ht 175.3 cm; Wt 114.8 kg
[~2019-05-31 11:50] MED LIST changes: +ASPI-255 PO; -BISO10TA6 PO; +BISO10TA7 PO; +JARD1TAB PO; +LIDOCAINE 1% MDV 20ML VIAL SQ PRN; +LIVA2TAB PO; +LR 1,000 ML IV ONE; +ceFAZolin SOD 1 GM in D5W MINI-BAG PLUS 50 ML IV ONE
[2019-05-31] MEDS ORDERED: PROPOFOL 200 MG/20 ML VIAL As Ordered ONE (11:56)
[2019-05-31] MEDS ORDERED: LIDOCAINE 2% INJ 100 MG/5 ML SDV (FOR ANES.) As Ordered ONE (11:56)
[2019-05-31] MEDS ORDERED: MIDAZOLAM INJ 2 MG/2 ML VIAL (J2250) As Ordered ONE (12:00)
[2019-05-31] MEDS ORDERED: fentaNYL 100 MCG/2 ML INJECTION (J3010) As Ordered ONE (12:00)
[2019-05-31] MEDS ORDERED: dexameTHASONE 4 MG/ML 1ML VIAL (J1100) As Ordered ONE (12:02)
[2019-05-31] MEDS ORDERED: KETOROLAC 60 MG/2 ML VIAL (J1885) As Ordered ONE (12:02)
[2019-05-31] MEDS ORDERED: ONDANSETRON 4MG/2ML VIAL (J2405) As Ordered ONE (12:02)
[2019-05-31] MEDS ORDERED: ROCURONIUM BROMIDE 50 MG/5 ML VIAL As Ordered ONE (12:46)
[2019-05-31] MEDS ORDERED: BUPIVACAINE HCL 0.25% 10 ML VIAL As Ordered ONE (12:54)
[2019-05-31] MEDS ORDERED: BUPIVACAINE LIPOSOME/PF 1.3% 20ML VIAL (13.3MG/ML)(EXPAREL)(C9290 PER1MG) As Ordered ONE (12:55)
[2019-05-31] MEDS ORDERED: SUGAMMADEX SODIUM 500 MG/5 ML VIAL (BRIDION) As Ordered ONE (13:43)
--- NOTE | 2019-05-31 14:29 | RO ---
DATE OF PROCEDURE: 05/31/2019 PREOPERATIVE DIAGNOSIS: Incisional hernia at the umbilicus. POSTOPERATIVE DIAGNOSIS: Incisional hernia at the umbilicus. PROCEDURE: Umbilical hernia repair with mesh. SURGEON: Dr. Zheng Basilio HOLTER TECHNICIAN: ANESTHESIA: General endotracheal anesthesia. ESTIMATED BLOOD LOSS: Minimal. FLUIS: Crystalloid. BRIEF PROCEDURE SUMMARY: The patient was brought to the operating room and given general anesthesia. After adequate anesthesia and preoperative antibiotics were given, the patient was prepped and draped in the usual sterile fashion. Next, a curvilinear incision above the umbilicus was created with skin knife. Electrocautery was used to cut through dermis and underlying subcutaneous tissue down to the previous midline incision which started right at the umbilicus. Cautery was used to dissect down to the fascia. Circumferentially I went around the umbilicus and then transected at its base. The preperitoneal fat that was coming through this area was also in the hernia sac and was transected at the level of the fascia. Once this was performed, the fascial defect was just big enough to get my finger through and I could not feel any other fascial defects in this area and above the umbilicus. I did the increase the size of the fascial defect just a few millimeters on each side, so I could place the ventral patch. The ventral patch was placed and I was able to palpate this up against the peritoneum circumferentially and then the tails of the mesh were sutured superiorly and inferiorly with #0 Ethibond. #0 Ethibond was used to close the fascia in a transverse manner with three [id number] sutures. Next, the dermis was brought together with #3-0 Vicryl and #4-0 Vicryl was used to approximate the skin. Steri-Strips and a dry sterile dressing was applied. The patient was awakened from his anesthesia and brought to the recovery room awake, alert and hemodynamically stable. Sponge and needle counts correct times two.
[2019-05-31] MEDS ORDERED: NORCO, ANEXSIA 5/325MG TABLET (HYDROcodone/ACETAMINOPHEN) PO PRN (14:30)
[2019-05-31] MEDS ORDERED: HYDROMORPHONE HCL 0.5 MG/ 0.5 ML SYRINGE (J1170 PER 1) IV PRN (14:30)
[2019-05-31] MEDS ORDERED: LR 1,000 ML IV SCH ×2 (14:30)
[2019-05-31] MEDS ORDERED: ONDANSETRON 4MG/2ML VIAL (J2405) IV PRN (14:30)
[2019-05-31] MEDS: PERCOCET 5MG/325MG TAB PO PRN ×2 (14:52→15:19)
[2019-05-31] MEDS: fentaNYL 100 MCG/2 ML INJECTION (J3010) IV PRN ×4 (15:02→15:25)
[2019-05-31 15:55] VITALS: BP 130/80
== END 2019-05-31 16:02 | disposition home or self-care (01) ==
LOC: M SDC 11:50
PROVIDERS: ATTEND Surgery
DX: K42.9 Umbilical hernia without obstruction or gangrene (principal); I10 Essential (primary) hypertension; E78.5 Hyperlipidemia, unspecified; E11.9 Type 2 diabetes mellitus without complications; G47.30 Sleep apnea, unspecified; Z79.4 Long term (current) use of insulin; Z79.899 Other long term (current) drug therapy; Z92.21 Personal history of antineoplastic chemotherapy; Z85.528 Personal history of other malignant neoplasm of kidney; Z87.891 Personal history of nicotine dependence; Z88.8 Allergy status to other drugs, medicaments and biological substances
CPT/HCPCS: 49585; 88302; C1781; C9290; J0690; J1100; J1885; J2250; J2405; J3010

== ENCOUNTER → 2020-11-05 | Outpatient (REF) | payer OTHER ==
[~2020-11-05] MED LIST changes: +AMLO1TAB24 PO; -AMLO5TAB6 PO; +BISO10TA14 PO; -BISO10TA7 PO; -GLIM2TAB PO; +GLIM2TAB4 PO; -IRBE150T12 PO; +IRBE150T7 PO; -LIDOCAINE 1% MDV 20ML VIAL SQ PRN; -LR 1,000 ML IV ONE; +ZETI10TA16 PO; -ZETI10TA30 PO; -ceFAZolin SOD 1 GM in D5W MINI-BAG PLUS 50 ML IV ONE
== END ==
LOC: M LAB REF 12:49
PROVIDERS: ATTEND Physician Assistant Medical
DX: Z11.59 Encounter for screening for other viral diseases (principal)

== ENCOUNTER → 2022-04-21 | Outpatient (REF) | payer OTHER ==
[2022-04-22 04:17] LABS: LDL DIRECT 85 mg/dL (0-99)
== END ==
LOC: M LAB REF 13:03
PROVIDERS: ATTEND Internal Medicine
DX: E78.2 Mixed hyperlipidemia (principal)

== ENCOUNTER → 2022-11-04 | Outpatient (CLI) | payer OTHER ==
[2022-11-04 13:00] LABS: BASO # 0.1 10^3/uL (0.0-0.2); BASO % 0.9 % (0.0-1.0); EOS # 0.2 10^3/uL (0.0-0.5); EOS % 2.8 % (0.0-3.0); HEMATOCRIT 54.9 % (42.0-52.0); HEMOGLOBIN 17.2 g/dl (13.5-17.5); LYMPH # 1.9 10^3/uL (1.5-5.0); LYMPH % 21.3 % (24.0-44.0); MEAN CORPUSCULAR HEMOGLOBIN 28.3 pg (27.0-33.0); MEAN CORPUSCULAR HGB CONC 31.3 g/dl (32.0-36.5); MEAN CORPUSCULAR VOLUME 90.3 fl (80.0-96.0); MONO # 0.5 10^3/uL (0.0-0.8); MONO % 5.7 % (2.0-8.0); NEUTROPHILS # 5.9 10^3/uL (1.5-8.5); NEUTROPHILS % 67.9 % (36.0-66.0); PLATELET COUNT, AUTOMATED 227 10^3/uL (150-450); RED BLOOD COUNT 6.08 10^6/uL (4.30-6.10); WHITE BLOOD COUNT 8.7 10^3/uL (4.0-10.0)
[2022-11-04 13:26] LABS: ALBUMIN 3.8 G/DL (3.2-5.2); ALKALINE PHOSPHATASE 94 U/L (46-116); ALT/SGPT 24 U/L (7.0-40); AST/SGOT 14 U/L (<34); BILIRUBIN,TOTAL 0.8 MG/DL (0.3-1.2); BLOOD UREA NITROGEN 29 MG/DL (9-23); CALCIUM LEVEL 9.4 MG/DL (8.3-10.6); CARBON DIOXIDE LEVEL 25 MMOL/L (20-31); CHLORIDE LEVEL 96 MMOL/L (98-107); CREATININE FOR GFR 1.02 MG/DL (0.70-1.30); GLOMERULAR FILTRATION RATE > 60.0 (>49); GLUCOSE, FASTING 251 MG/DL (74-106); POTASSIUM SERUM 3.5 MMOL/L (3.5-5.1); SODIUM LEVEL 135 MMOL/L (136-145); TOTAL PROTEIN 7.3 G/DL (5.7-8.2)
== END ==
LOC: M WUC 10:14
PROVIDERS: ATTEND Urology
DX: Z85.51 Personal history of malignant neoplasm of bladder (principal); Z85.528 Personal history of other malignant neoplasm of kidney

== ENCOUNTER → 2023-03-27 | Outpatient (REF) | payer OTHER ==
[~2023-03-27] MED LIST changes: +MONT-5 PO; -SING10TA32 PO
[2023-03-28 04:10] LABS: LDL DIRECT 72 mg/dL (0-99)
== END ==
LOC: M LAB REF 12:00
PROVIDERS: ATTEND Internal Medicine
DX: E78.2 Mixed hyperlipidemia (principal)

== ENCOUNTER → 2023-10-19 | Outpatient (CLI) | payer OTHER ==
[~2023-10-19] MED LIST changes: +EZET10TA58 PO; -ZETI10TA16 PO
== END ==
LOC: M RAD 08:44
PROVIDERS: ATTEND Nurse Practitioner Adult Health
DX: Z87.891 Personal history of nicotine dependence (principal)

== ENCOUNTER → 2023-12-21 | Outpatient (CLI) | payer OTHER ==
[~2023-12-21] MED LIST changes: +IRBE150T27 PO; -IRBE150T7 PO
== END ==
LOC: M LAB 12:07
PROVIDERS: ATTEND Urology
DX: N40.0 Benign prostatic hyperplasia without lower urinary tract symptoms (principal)

== ENCOUNTER → 2024-02-10 | Outpatient (REF) | payer OTHER ==
[~2024-02-10] MED LIST changes: +INDA2.5T2 PO; -INDA25TAB PO
== END ==
LOC: M LAB REF 12:10
PROVIDERS: ATTEND Internal Medicine
DX: E11.42 Type 2 diabetes mellitus with diabetic polyneuropathy (principal)

== ENCOUNTER → 2024-05-11 | Outpatient (CLI) | payer OTHER | LOC: M PLAIMG 09:37 | PROVIDERS: ATTEND Nurse Practitioner Adult Health | DX: R91.8 Other nonspecific abnormal finding of lung field (principal) ==

== ENCOUNTER → 2024-05-18 | Outpatient (CLI) | payer OTHER | LOC: M SOG 07:58 | PROVIDERS: ATTEND Orthopaedic Surgery | DX: M25.572 Pain in left ankle and joints of left foot (principal) ==

== ENCOUNTER → 2024-08-01 | Outpatient (REF) | payer OTHER | LOC: M LAB REF 16:21 | PROVIDERS: ATTEND Internal Medicine | DX: E78.2 Mixed hyperlipidemia (principal) ==

== ENCOUNTER → 2024-12-09 | Outpatient (CLI) | payer OTHER | LOC: M RAD 09:33 | PROVIDERS: ATTEND Urology | DX: Z12.5 Encounter for screening for malignant neoplasm of prostate (principal); Z85.528 Personal history of other malignant neoplasm of kidney ==

== ENCOUNTER → 2025-02-15 | Outpatient (CLI) | payer OTHER | LOC: M RAD 13:01 | PROVIDERS: ATTEND Internal Medicine | DX: R22.42 Localized swelling, mass and lump, left lower limb (principal) ==

== ENCOUNTER → 2025-02-15 | Outpatient (REF) | payer OTHER ==
[2025-02-15 14:30] LABS: INR 0.88; PARTIAL THROMBOPLASTIN TIME 26.3 SECONDS (24.8-34.2); PROTHROMBIN TIME 12.2 SECONDS (12.5-14.5)
== END ==
LOC: M LAB REF 14:06
PROVIDERS: ATTEND Internal Medicine
DX: R22.42 Localized swelling, mass and lump, left lower limb (principal)

== ENCOUNTER → 2025-10-11 | Outpatient (REF) | payer OTHER ==
[2025-10-13 06:13] LABS: LDL DIRECT 63 mg/dL (<100)
== END ==
LOC: M LAB REF 14:16
PROVIDERS: ATTEND Internal Medicine
DX: E78.2 Mixed hyperlipidemia (principal)